=== PATIENT | female | born 1980 | race Caucasian/White ===

== ENCOUNTER → 2024-04-30 15:45 | Outpatient (REF) | payer BC, SELFPAY | LOC: HWWDC 15:45 | PROVIDERS: ATTENDING PHYSICIAN Obstetrics & Gynecology; FAMILY PHYSICIAN Family Medicine | DX: Z12.31 Encounter for screening mammogram for malignant neoplasm of breast (principal) | CPT/HCPCS: 77063; 77067 ==

== ENCOUNTER → 2024-05-14 09:04 | Outpatient (REF) | payer BC, SELFPAY | LOC: WDC 09:04 | PROVIDERS: ATTENDING PHYSICIAN Obstetrics & Gynecology; FAMILY PHYSICIAN Family Medicine | DX: R92.8 Other abnormal and inconclusive findings on diagnostic imaging of breast (principal) | CPT/HCPCS: 76642; 77065 ==

== ENCOUNTER → 2024-06-18 07:26 | Outpatient (REF) | payer BC, SELFPAY ==
--- NOTE | 2024-06-18 09:07 | OID.BR.INTR ---
[facility] Breast Navigator - Initial
- -
Date of Contact: 06/18/24
Met with patient. Patient given written information on navigator services available at [facility]. Will follow up as needed per protocol.
== END ==
LOC: WDC 07:26
PROVIDERS: ATTENDING PHYSICIAN Obstetrics & Gynecology
DX: R92.1 Mammographic calcification found on diagnostic imaging of breast (principal)
CPT/HCPCS: 88305; 19081; 76098; A4648

== ENCOUNTER 2024-06-28 19:42 | Emergency (ER) | payer BC, SELFPAY ==
[2024-06-28 19:53] VITALS: BP 136/89
[2024-06-28 20:16] LABS: % Basophils 0.3 % (0-2); % Eosinophils 0.3 % (0-6); % Immature Granulocytes 0.5 % (0-0.5); % Lymphocytes 9.8 % (20.5-51.1); % Monocytes 3.8 % (1.7-9.3); % Neutrophils 85.3 % (42.2-75.2); Absolute Eosinophils 0.1 10^3/uL (0-0.7); Absolute Immature Granulocytes 0.1 10^3/uL (0-0.05); Absolute Lymphocytes 1.5 10^3/uL (1.2-3.4); Absolute Monocytes 0.6 10^3/uL (0.1-0.6); Absolute Neutrophils 12.6 10^3/uL (1.4-6.5); Hematocrit 44.5 % (37.0-47.0); Hemoglobin 15.3 g/dL (12.0-16.0); Mean Corp Hgb Conc. 34.4 g/dL (33.0-37.0); Mean Corpuscular Hgb 28.7 pg (27.0-31.0); Mean Corpuscular Volume 83.5 fL (81.0-99.0); Mean Platelet Volume 9.6 fL (7.4-10.4); Nucleated Red Blood Cells % 0 %; Platelet Count 322 10^3/uL (130-400); Red Blood Cell Count 5.33 10^6/uL (4.20-5.40); Red Cell Dist. Width 12.5 % (11.5-14.5); White Blood Cell Count 14.8 10^3/uL (4.8-10.8)
[2024-06-28] MEDS: ANTIVERT 25 MG PO ×2 (20:17→23:42)
[2024-06-28] MEDS: ZOFRAN ODT (ORALLY DISINTEGRATING) 4 MG PO (20:17)
[2024-06-28 20:30] LABS: ALT (SGPT) 21 U/L (0-35); AST (SGOT) 26 U/L (14-36); Albumin 5.1 g/dl (3.5-5.0); Alkaline Phosphatase 55 U/L (38-126); Blood Urea Nitrogen 22 mg/dl (7-17); Calcium 9.7 mg/dl (8.4-10.2); Carbon Dioxide 26 mmol/L (22-30); Chloride 98 mmol/L (98-107); Glucose 90 mg/dl (70-99); Potassium 4.3 mmol/L (3.5-5.1); Sodium 137 mmol/L (135-145); Total Bilirubin 1.1 mg/dl (0.2-1.3); Total Protein 7.9 g/dl (6.3-8.2); eGFR > 60.00
[2024-06-28 23:00] VITALS: BP 120/80
[2024-06-29] VITALS: BP 115/80
[2024-06-29 00:22] LABS: HCG, Serum Qualitative Screen Negative
--- NOTE | 2024-06-29 00:34 | ED.GENMED ---
History of Present Illness
General
Chief Complaint: Dizziness
Source: patient, spouse and previous hospital records (Stereotactic right breast biopsy June 18, 2024. Pathology report-benign findings.)
Exam Limitations: none
Time Seen by Provider: 06/28/24 23:12
Nursing documentation reviewed up to this point in time: agreed with except (Other history reports right breast biopsy June 2023-biopsy was June 18, 2024)
History of Present Illness
History of Present Illness:
This is a 43-year-old woman who has no significant past medical history save for recent right breast biopsy June 18, 2024 which showed benign fibrocystic breast tissue and microcalcifications. She does note moderate bleeding initially after
breast biopsy site with development of large subcutaneous right breast hematoma that has been slowly resolving over the past week.
She is a school counselor and yesterday while attending an pill packer meeting around 4 PM she suddenly developed dizziness which she describes as a sense of spinning, movement that was much worse with change in position, worse with standing and
accompanied with nausea. Dizziness and nausea worsened last night accompanied with intermittent dry heaves and has persisted throughout the day today. Symptoms are much worse with change in position, improved/resolved when she is lying or sitting
still. She does admit to mild throbbing sensation of her ears today but denies ear pain, no ringing, no hearing difficulty. No headache, no fever no chills, no sinus congestion nor sore throat, no chest pain or palpitations, no abdominal pain, no
diarrhea.
No history of similar episodes in the past and no close contacts with similar symptoms.
She admits to minimal oral intake today due to intermittent dizziness and nausea.
Patient admits that she has not had a menstrual period since March 2024. Her menses are generally regular. 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
unremarkable hormone levels.
Since arrival to the ED she has undergone CT of the head which is unremarkable.
Laboratory studies showing mildly elevated white blood cell count of 14.8, normal H&H, unremarkable chemistries save for minimally elevated BUN of 22, normal creatinine, normal electrolytes.
She has been given a dose of Zofran ODT as well as meclizine 25 mg and symptoms have markedly improved with resolution of nausea and near complete resolution of dizziness.
Past History
Past History
ED Past Medical History: Other (Migraine headaches)
ED Past Surgical History: Other ( Right breast biopsy June 2024)
Social History
Tobacco: Non-smoker
Drug: None
Personal:
Living: with family
Employment: Employed
Family History
Family History: Other (Noncontributory)
Phy Exam
Physical Exam
Physical Exam:
GENERAL: 43-year-old woman appears her stated age, awake and alert, pleasant, appears in no acute distress. is accompanying.
EYE: pupils equal and reactive. Discs are sharp bilaterally. Extraocular muscles intact with mild right lateral gaze nystagmus. Test of skew is negative. Anicteric
NECK: Supple, nontender, no meningismus, no significant adenopathy.
ENT: posterior pharynx is clear, oral mucosa is moist. TM clear b/l, nares patent.
CARDIAC: Regular rate and rhythm. no murmur.
LUNGS: Clear breath sounds bilaterally, no acute respiratory distress, no wheezes/rales/rhonchi
ABDOMEN: Soft, nondistended, without focal tenderness, no r/g, no cvat. normoactive BS.
NEUROLOGICAL: Alert and oriented x3, no focal neuro deficits.
SKIN: Warm and dry, normal color, skin intact. No rash.
MUSCULOSKELETAL: No C/C/E. peripheral pulses are full and equal b/l. No palpable tenderness.
PSYCH: Normal and appropriate interaction.
Course
Orders/Labs/Results
Orders:
Orders
06/28/24 20:[address] [CT Head W/o Iv Contrast] Urgent
Comment:
Reason For Exam: dizziness pressure in ears
06/28/24 20:01
Electrocardiogram (*1) Urgent
Reason for Study: Vertigo / Dizzy
EKG- Treatment ONCE
06/28/24 20:07
CMP [Comprehensive Metabolic Panel] Urgent
Complete Blood Count/With Diff Urgent
HCG, Serum Qualitative Screen Urgent
Comment: ADD ON
06/28/24 20:14
Meclizine [Antivert] 25 mg PO NOW STA
Ondansetron Orally Disint [Zofran Odt (Orally Disintegrating)] 4 mg PO NOW STA
06/28/24 23:32
Meclizine [Antivert] 25 mg PO NOW STA
06/28/24 23:33
Add On- LAB Urgent
Tests Added?: serum qual HCG
Abnormal Lab Results
06/28/24
20:07
WBC 14.8 H 10^3/uL
(4.8-10.8)
Abs Immat Gran (auto) 0.1 H 10^3/uL
(0-0.05)
Absolute Neuts (auto) 12.6 H 10^3/uL
(1.4-6.5)
Neutrophils % 85.3 H %
(42.2-75.2)
Lymphocytes % 9.8 L %
(20.5-51.1)
BUN 22 H mg/dl
(7-17)
Albumin 5.1 H g/dl
(3.5-5.0)
06/28/24 20:07
06/28/24 20:07
Vital Signs
Initial and Last Documented VS:
Initial Vital Signs
Temp Pulse Resp BP Pulse Ox
98.6 F 101 20 136/89 99
06/28/24 19:53 06/28/24 19:53 06/28/24 19:53 06/28/24 19:53 06/28/24 19:53
Last Documented Vital Signs
Temp Pulse Resp BP Pulse Ox
98.6 F 75 11 118/83 98
06/28/24 19:53 06/29/24 00:57 06/29/24 00:57 06/29/24 00:57 06/29/24 00:45
MDM/Problems Addressed
Differential Diagnosis Includes:
Concern for benign/peripheral positional vertigo, less likely central vertigo.
Other consideration is gastroenteritis, orthostasis, symptomatic anemia, occult breast infection status post right breast biopsy 1 and half weeks ago.
Reassuring that patient feeling markedly improved after dose of Zofran and meclizine.
As above, CT of the head is unremarkable.
EKG is unremarkable showing normal sinus rhythm. Monitor shows normal sinus rhythm without ectopy nor arrhythmia.
Labs show elevated white blood cell count with normal H&H. She remains afebrile and no reported subjective fevers.
She is noted to have moderate-sized subacute hematoma right breast but no associated erythema, no heat and no significant tenderness to palpation. Patient admits that hematoma is slowly improving which is reassuring.
She does continue with very mild dizziness with rapid change in position thus will give an additional dose of meclizine, trial oral fluids and continue to observe.
Has not had a menstrual period since March 2024. Reports negative hCG 1 week ago but will repeat today for completeness sake.
*Radiology
Radiology exam reviewed: radiology read reviewed (CT of the head is unremarkable)
*Pulse Oximetry
Patient hypoxic: no
*EKG
Interpreted by ED Provider?: Yes
Interpretation: normal
Comparison EKG: no comparison EKG present
Rate: normal
Rhythm: sinus
[place]: normal axis
Interval: normal interval
QRS Pattern: normal QRS
Ischemia: no ischemia
*Transcription Interpretation
Rate: normal
Interpretation: normal
Rhythm: sinus
*Critical Care Note
Total Time (30-74mins, 75-104mins- exclusive of procedures): Not Applicable
Update Note
Update Note:
01:40
Patient resting comfortably, feels improved after second dose of meclizine.
History and exam most consistent with benign paroxysmal positional vertigo.
Right breast hematoma, moderate in size but appears to be resolving and nothing on exam to suggest breast cellulitis nor mastitis/abscess.
H&H within normal limits. Without anemia.
Recommend supportive measures, stay well-hydrated on a daily basis, change positions slowly.
Will prescribe as needed meclizine as well as as needed Zofran.
Prompt follow-up with PCP on Monday especially if symptoms have not resolved.
Return precautions discussed.
ED Attending Note
-
Portions of this chart may have been created with voice recognition software.� Occasional wrong word or��sound alike� substitutions may have occurred due to the inherent limitations of voice recognition software.
Discharge Plan
Departure
Patient Disposition: Home (Routine Discharge)
Date of Disposition: 06/29/24
Time of Disposition: 00:46
Patient with high blood pressure during this ER visit?: No
Condition: Good
Discharge Problem:
Benign paroxysmal positional vertigo, resolving hematoma right breast
Instructions: Vertigo (a type of dizziness), Hematoma
Prescriptions:
New
meclizine 25 mg tablet
25 mg PO QID PRN (Reason: dizziness, nausea) Qty: 20 0RF
ondansetron 4 mg tablet,disintegrating
4 mg PO QID PRN (Reason: nausea and vomiting) Qty: 20 0RF
No Action
ibuprofen 600 MG tablet
600 mg PO Q4HPRN PRN (Reason: moderate pain/cramps) Qty: 90 0RF
multivitamin Tablet
1 tab PO DAILY
spironolactone 100 mg Tablet
100 mg PO DAILY
Referrals:
Claudio Fraga MD [Family Provider] - Call in 1-3 days for appt
Interventions
Interventions:
*Risk Screen - Suicide Last Done: 06/28/24 22:45
*General Assessment Last Done: 06/28/24 23:02
*Neglect/Abuse Screening Last Done: 06/28/24 22:45
ED- Fall Risk Assessment Last Done: 06/28/24 22:45
*ED COVID-19 Vaccine History Last Done: 06/28/24 23:45
*Nursing Disposition Last Done: 06/29/24 01:00
ED- Neurological Assessment Last Done: 06/28/24 23:40
ED- Cardiac Assessment Last Done: 06/28/24 23:40
ED Swallowing Screen Last Done: 06/28/24 23:01
Discharge Date and Time
Discharge Date/Time: 06/29/24 01:00
Print Language: [place]
[2024-06-29 00:57] VITALS: BP 118/83
== END 2024-06-29 01:00 | disposition home or self-care (01) ==
LOC: EMR 19:42
PROVIDERS: Emergency Medicine; EMERGENCY PHYSICIAN Emergency Medicine; FAMILY PHYSICIAN Family Medicine
DX: H81.10 Benign paroxysmal vertigo, unspecified ear (principal); S20.01XA Contusion of right breast, initial encounter; X58.XXXA Exposure to other specified factors, initial encounter
CPT/HCPCS: 99284; 70450; 80053; 84703; 85025; 93005